=== PATIENT | female | born 1960 | race Caucasian/White ===

== ENCOUNTER 2018-11-07 07:18 | Inpatient (IN) ==
--- NOTE | 2018-11-06 21:50 | Discharge Summary ---
Orders not resulted at time of discharge: Pending orders 11/07/18 00:01 XR hip complete LT [XR] Routine H/H [Hemoglobin and Hematocrit] [HEME] Routine Date of Encounter: 11/09/18 Time of Encounter: 10:30 - Discharge Diagnosis (1) Status post total hip replacement, left Priority: Primary Status: Acute Comments: Opsite dressing, leave intact until first post-operative visit. If dressing becomes >50% saturated, contact office, remove dressing and place appropriate dressing in its place. Do not allow for dressing to get wet. Zipline/Jesús in place, plan to remove at post-operative day #14-16. Total Joint Precautions x 6 weeks Apply cold therapy wrap 3-6x/day for 20 minutes at a time. Encourage ambulation throughout the day Use Incentive spirometer 10x/hour. Elevate affected extremity above heart as tolerated. Brace: Wear hip abductor brace at night x 6 weeks. (2) Arthritis of left hip Priority: Primary Status: Acute (3) HTN (hypertension) Priority: Secondary Status: Chronic Qualifiers: Hypertension type: essential hypertension Qualified Code(s): I10 - Essential (primary) hypertension (4) HLD (hyperlipidemia) Priority: Secondary Status: Chronic Qualifiers: Hyperlipidemia type: mixed hyperlipidemia Qualified Code(s): E78.2 - Mixed hyperlipidemia (5) SVT (supraventricular tachycardia) Priority: Secondary Status: Chronic (6) Anxiety Priority: Secondary Status: Chronic (7) Depression Priority: Secondary Status: Chronic Qualifiers: Depression Type: unspecified Qualified Code(s): F32.9 - Major depressive disorder, single episode, unspecified (8) Obesity Priority: Secondary Status: Chronic Qualifiers: Obesity type: due to excess calories Obesity classification: adult class 2 (BMI 35 - 39.9) Serious obesity comorbidity presence: without serious comorbidity Body mass index: BMI 36.0-36.9 Qualified Code(s): E66.09 - Other obesity due to excess calories; Z68.36 - Body mass index (BMI) 36.0-36.9, adult - Hospital Course Hospital course: Ms. Mcneil is a 58 year old female, status post f . Patient had Right THR, uneventful postoperative course. Stable for discharge. Patient seen at bedside by this AM, without complaints. A&O x 3 Afebrile, vital signs stable. AM hypotension 11/09 - Cardizem held this AM. BP stable at D/C. Vital Signs Temp Pulse Resp BP Pulse Ox 11/09/18 09:41 98.3 F 92 16 123/59 96 11/09/18 07:01 97.4 F L 87 15 99/56 96 11/09/18 03:31 98.3 F 85 15 105/69 92 11/08/18 23:27 98.4 F 80 16 97/50 96 11/08/18 19:07 97.9 F 84 15 103/72 91 11/08/18 16:07 96/68 11/08/18 15:59 99.0 F 83 16 74/45 97 11/08/18 12:03 99.1 F 93 15 111/79 94 Intake and Output 11/08/18 11/09/18 11/09/18 23:59 07:59 15:59 Intake Total 300 / 300 360 / 360 Balance 300 / 300 360 / 360 Intake: Oral 300 / 300 360 / 360 Other: Meal Breakfast Percent of Meal Consumed 100% # Voids 1 1 Weight 98.2 kg Patient Weight 11/09/18 23:59 Weight 98.2 kg Labs reviewed. H/H - stable, asymptomatic Short CBC 11/09/18 Range/Units 07:29 Hgb 10.8 L (11.5-15.4) g/dL Hct 33.7 L (35.3-44.9) % Pain control: adequate Participating in PT. All questions and concerns addressed. Educated on use of incentive spirometer. Encouraged ambulation and proper hydration. Patient educated on post-operative restrictions and post-operative care. Assessment and plan: Continue with postoperative care Discharge plan: ECF , discharge today. - Time Spent with Patient Total time spent providing and/or coordinating discharge services: - Discharge Medications Home Medications: Aspirin Enteric Coated [Aspirin EC] 325 mg PO BID #20 tablet. 11/06/18 [Rx] Docusate [Colace] 100 mg PO BID 10 Days #20 capsule 11/06/18 [Rx] OxyCODONE Immed Rel [Roxicodone 5 MG] 5 mg PO Q6HR PRN 7 Days #28 tablet 11/06/18 [Rx] Duloxetine HCl [Cymbalta] 60 mg PO DAILY 11/07/18 [History] Linaclotide [Linzess] 145 mcg PO DAILY PRN 11/07/18 [History] Metoprolol Tartrate 50 mg PO BID 11/07/18 [History] Potassium Citrate [Urocit-K] 10 meq PO TID 11/07/18 [History] Pravastatin Sodium [Pravachol] 80 mg PO DAILY 11/07/18 [History] Pregabalin [Lyrica] 150 mg PO BID 11/07/18 [History] BuPROPion [Wellbutrin] 25 mg PO QAM 11/08/18 [History] BuPROPion [Wellbutrin] 50 mg PO HS 11/08/18 [History] Buspirone HCl [Buspar] 15 mg PO BID 11/08/18 [History] Celecoxib [Celebrex] 100 mg PO BID 11/08/18 [History] Diltiazem CD (24hr) [Cardizem CD] 240 mg PO DAILY 11/08/18 [History] Ascorbic Acid [Vitamin C] 500 mg PO BIDWM tablet 11/09/18 [Rx] Ferrous Sulfate 325 mg PO BIDWM tablet 11/09/18 [Rx] Multivit/Ca/Min/Fe/FA [Thera M Plus] 1 tab PO DAILY tablet 11/09/18 [Rx] Allergies/Adverse Reactions: Allergy/AdvReac Type Severity Reaction Status Date / Time bupropion [From Wellbutrin] Allergy See Verified 11/02/18 10:29 Comments prochlorperazine Allergy See Verified 11/02/18 10:29 [From Compazine] Comments promethazine [From Phenergan] Allergy See Verified 11/02/18 10:29 Comments Date of admission: 11/07/18 Primary care physician: Gogo Lopez Anticipated date of discharge: 11/09/18 - Patient Status Disposition: Transfer SNF Condition: Good Functional capacity at discharge: uses cane/walker Overall status at discharge: patient is progressing back to baseline - Discharge Instructions Follow Up With: Gogo Lopez [Primary Care Provider] -
--- NOTE | 2018-11-07 07:38 | Anesthesia Evaluation PreOp ---
Date of Encounter: 11/07/18 Time of Encounter: 07:37 - Past History Planned Operation: Left total hip Cardiac History: HTN, Hyperlipidemia, Other (hx SVT on diltiazem) Pulmonary History: Denies Any Significant HX PUBLICATION SPECIALIST History: Other (anxiety, depression) Other Medical History: Other (BMI 36) Anesthesia History: No Prior Anesthetic Complications, Past Anesthesia (laminect zeinab L5-S1, appy, hysterectomy, tonsil R total shoulder) : No Alcohol Use: none Drug use: none Medications and Allergies Aspirin Enteric Coated [Aspirin EC] 325 mg PO BID #20 tablet.dr 11/06/18 [Rx] Docusate [Colace] 100 mg PO BID 10 Days #20 capsule 11/06/18 [Rx] OxyCODONE Immed Rel [Roxicodone 5 MG] 5 mg PO Q6HR PRN 7 Days #28 tablet 11/06/18 [Rx] Allergy/AdvReac Type Severity Reaction Status Date / Time bupropion [From Wellbutrin] Allergy See Verified 11/02/18 10:29 Comments prochlorperazine Allergy See Verified 11/02/18 10:29 [From Compazine] Comments promethazine [From Phenergan] Allergy See Verified 11/02/18 10:29 Comments - Meds/Allergy Pre-op Review Medications Reviewed: Yes Allergies Reviewed: Yes Beta Blockers on Current Med List: Yes (metoprolol ) If Beta Blockers taken, Date/Time (Last Dose taken): 0700 Anesthesia Results - Labs Laboratory Tests 10/10/18 11/02/18 11/02/18 08:52 10:57 10:57 WBC 7.3 Hgb 13.9 Hct 42.8 Plt Count 336 PT 11.7 INR 1.0 APTT 31.5 Sodium 139 Potassium 4.3 Chloride 105 Carbon Dioxide 26 BUN 17 Creatinine 0.82 Est GFR (Non-Af Amer) > 60 - Imaging EKG: report reviewed Anesthesia Exam Vital Signs/O2 Sat/Glucose, Most Recent Temp Pulse Resp BP Pulse Ox 99.2 F 83 18 118/66 97 11/07/18 07:43 11/07/18 07:43 11/07/18 07:43 11/07/18 07:43 11/07/18 07:43 Weight: 97 kg NPO (# of Hours): > 8 hr - HEENT Pupil (Motor): Pupils equal Mallampati: III Teeth: Normal Oral Opening: Greater than 3 - PUBLICATION SPECIALIST LOC: Oriented PUBLICATION SPECIALIST Motor: Normal RUE, Normal LUE, Normal RLE, Normal LLE, Normal Face PUBLICATION SPECIALIST Sensory: Normal: RUE, LUE, RLE, LLE, Face - Cardiac Rhythm: Regular Murmur: None - Pulmonary Breath Sounds: bilateral Clear Respiratory Effort: Symmetrical Anesthesia Assess/Plan ASA Score: 3 Level of consciousness: Cooperative, Oriented Anesthetic Plan: Spinal Monitoring Plan: Standard Monitors Recovery Plan: PACU
[2018-11-07] MEDS ORDERED: Albuterol 2.5 MG/3 ML NEBULIZER IH ONE (07:39)
[2018-11-07] MEDS ORDERED: CeFAZolin Syr 2,000MG/20 ML 2,000 MG/20 ML SYRINGE IVPB ONE (07:39)
[2018-11-07] MEDS ORDERED: *HR* OxyCODONE ER (12 HR) 10 MG TABLET PO ONE (07:44)
[2018-11-07] MEDS ORDERED: Celecoxib 100 MG CAPSULE PO ONE (07:44)
[2018-11-07] MEDS ORDERED: Ringers Solution, Lactated 1,000 ML IVC SCH (07:45)
[2018-11-07] MEDS ORDERED: Famotidine 20 MG/2 ML VIAL IVP ONE (08:07)
[2018-11-07] MEDS ORDERED: *HR* HYDROmorphone (PF) 1 MG/ML SYRINGE IVP PRN (08:12)
[2018-11-07] MEDS ORDERED: *HR* OxyCODONE Immed Rel 5 MG TABLET PO PRN (08:12)
[2018-11-07] MEDS ORDERED: Ondansetron 4 MG/2 ML VIAL IVP ONE (08:12)
--- NOTE | 2018-11-07 08:16 | History & Physical Report ---
Date of Encounter: 11/07/18 Time of Encounter: 08:16 24 Hour HP Update - Instructions Instructions: If the History and Physical is less than 30 days old and was completed prior to A.M. admission and or procedure and has NOT been updated on calendar day of procedure please complete this update prior to performing procedure. - Update Patient reports changes in Medical Condition: No Changes in examination, assessment, or condition: No Changes in Medication: No Preop tests/diagnostics Reviewed: Yes Surgery Remains Indicated: Yes Consent for Planned Operative Procedure(s) Verified: Yes - Pre-Operative Checklist Preoperative Checklist Indicated: No Prophylactic Antibiotic Ordered: Yes Is VTE Prophylaxis Indicated?: Yes
[2018-11-07] MEDS ORDERED: Pregabalin 50 MG CAPSULE PO SCH (09:00)
[2018-11-07] MEDS ORDERED: Lidocaine -MPF 1% 5 ML AMPUL ONE (09:02)
[2018-11-07] MEDS ORDERED: Ethanol\\Acetic Acid\\Na Ace\\Ben 1,000 ML IRRIG.SOLN IR ONE (09:19)
--- NOTE | 2018-11-07 09:39 | Anesthesia Procedures ---
Date of Encounter: 11/07/18 Time of Encounter: 09:37 Procedures: Anesthesia - Epidural/Spinal Patient ID/Chart reviewed: Yes Patient examined: Yes OB Eval: Contractions: Non-stressed pattern Consent Obtained: Yes Supplemental Oxygen: Nasal Cannula Supplemental Oxygen Rate (L/min): 3 Sedation: Versed (mg): 2 Sedation: Fentanyl (mcg): 100 Site Prep: Aseptic Technique, Sterile prep and drape, Povidone-Iodine 1% Patient position: upright Local Anesthetic: Lidocaine 1% Amount of Local Anesthetic used: 3 Interspace Used: L4-L5 Loss of Resistance (ELVIA): No Blood: No CSF: Yes Paresthesia: No Spinal Needle Gauge: 25 (3.5" pencan needle) Spinal Dose: 2.5mL of 0.5% bupivicaine Procedure: successful on 1st attempt; patient tolerated procedure well; VSS Vitals + FHT's: see holding vital signs note
[2018-11-07] MEDS ORDERED: *HR* FentaNYL (PF) 100 MCG/2 ML VIAL ONE (10:31)
[2018-11-07] MEDS ORDERED: EPHEDrine 50 MG/ML VIAL ONE ×2 (10:31→10:49)
[2018-11-07] MEDS ORDERED: *HR* Midazolam HCl 2 MG/2 ML VIAL ONE (10:31)
[2018-11-07] MEDS ORDERED: Tranexamic Acid 1,000 MG/10 ML VIAL ONE (10:31)
[2018-11-07] MEDS ORDERED: *HR* Propofol 200 MG/20 ML VIAL IVP ONE (10:31)
[2018-11-07] MEDS ORDERED: Lidocaine -MPF 2% 2 ML VIAL ONE (10:31)
[2018-11-07] MEDS ORDERED: Propofol 500 MG/50 ML INFUS..BTL ONE ×2 (10:31→10:39)
[2018-11-07] MEDS ORDERED: *HR* PHENYLEPHRINE 1,000 MCG/10 ML SYRINGE IVP ONE (10:45)
--- NOTE | 2018-11-07 10:46 | Orthopedic Operative Note ---
Date of procedure: 11/07/18 Pre-op diagnosis: Left hip arthritis Post-op diagnosis: same Procedure: Procedure: Left Total Hip Replacment robotic-assisted Estimated blood loss: 200 cc Hardware: Metal and polyethylene replacement. [place] DM Cup: 50 cup Femoral size8 stem Head: 8 head with Lori Procedural Notes: Grade 4 arthritic changes femoral head acetabular socket, procedure performed with robotic assistance. Operative leg 1 mm shorter than nonoperative leg is measured by preoperative CT scan Operative procedure: The patient was brought to the operating room and placed on the operating room table. After general anesthesia was administered the patient was placed in the lateral decubitus position with the operative leg up. All pressure points were padded appropriately and the head was stabilized in the neutral position. The operative extremity was prepped and draped in the sterile surgical fashion patient received IV antibiotic prior to skin incision. 3 Steinmann pins were placed in the iliac crest 3 cm proximal to the anterior superior iliac spine this was for the robotic-assisted sensor. This was done through a small 2 cm incision. A standard posterior approach is made to the operative hip, the incision was made through the skin and subcutaneous tissue hemostasis was obtained with Bovie cautery. Using careful sharp dissection the fascia was identified and incised exposing the external rotators. The greater trochanter was marked, and length was measured at this time utilizing robotic assistance. The external rotators were released off the greater trochanter and tagged with #2 FiberWire suture. The capsule was T'd open and the hip was brought into internal rotation. Patient noted to have grade 4 arthritic changes femoral head. The femoral neck cut was made at the appropriate level roughly 15 mm proximal to the lesser trochanter aced on preoperative templating. An anterior capsulotomy was performed for the anterior retractor. Soft tissues removed from the acetabulum. Patient noted to have grade 4 arthritic changes acetabulum. The acetabulum reference point was confirmed. The acetabulum was then mapped with robotic assistance. Based on the preoperative plan the acetabulum was reamed in one step with a 49 reamer. The 50 acetabulum was impacted with robotic assistance and 36 degrees of abduction and 22 degrees of anteversion. The hip was brought back in to internal rotation and prepared with the hot box operator followed by the canal finder followed by the reaming process to a size 7/8 broaching process in 20 degrees anteversion. It was broached up to the appropriate size 8 Trial reduction revealed leg lengths close to normal. The femoral implant was impacted in place in 20 degrees of anteversion. Trial reduction found the hip to be stable with 8 head and Lori. The trials were removed and the real implants were impacted in place. The hip was reduced, patient had robotic confirmed leg length of 10 mm longer than the contralateral side. The hip had excellent stability with forward flexion to 90 degrees adduction of 30 degrees and internal rotation of 60 degrees. The hip had no shuck. The hip sat with an antibacterial solution. It was irrigated out with 2 L of pulse irrigation. The Steinmann pins were removed. The hip was closed by the PA. The deep tissue was irrigated and closed deep with #1 PDS suture superficially with 0 PDS suture and skin was closed with Dermabond and zip tie. The patient was placed in a sterile dressing and abduction pillow. The patient was extubated and transferred to the recovery room in stable condition. Anesthesia: spinal Surgeon: Emmanuel Steel Was there an technical services assistant present: Yes E Commerce Specialist: Nica Ricks Estimated blood loss (cc): 200 Condition: stable Disposition: PACU
--- NOTE | 2018-11-07 11:41 | Anesthesia Evaluation Post Op ---
Date of Encounter: 11/07/18 Time of Encounter: 11:40 - Vital Signs Vital Signs: Vital Signs/O2 Sat/Glucose, Most Recent Temp Pulse Resp BP Pulse Ox 97.4 F L 78 14 97/56 98 11/07/18 11:15 11/07/18 11:35 11/07/18 11:35 11/07/18 11:35 11/07/18 11:35 - Lungs Lungs: Clear Ascult./Percussion - Airway Airway: Non-obstructed - Cardiovascular Regular Rate - Mental Status Mental Status: Alert & Oriented, Answers Appropriately - Pain Pain Scale: 0 - Nausea Vomiting Nausea Vomiting: Not Present - Hydration Hydration: Tolerates oral liquids - Discharge PostOp Status: Transfer Patient to floor
[2018-11-07 11:49] LABS: Hemoglobin 11.4 g/dL (11.5-15.4)
[2018-11-07] MEDS ORDERED: MOM Conc 10 ML UD.LIQ PO PRN (11:59)
[2018-11-07] MEDS ORDERED: Naloxone 0.4 MG/ML INJ IVP PRN (11:59)
[2018-11-07] MEDS ORDERED: Ondansetron 4 MG/2 ML VIAL IVP PRN (11:59)
[2018-11-07] MEDS ORDERED: *HR* Promethazine 25 MG/ML VIAL IVP PRN (11:59)
[2018-11-07] MEDS ORDERED: (Linaclotide [Linzess] 145 MCG) PO PRN (11:59)
[2018-11-07] MEDS ORDERED: Temazepam 15 MG CAPSULE PO PRN (11:59)
[2018-11-07] MEDS ORDERED: Sennosides 8.6 MG TABLET PO PRN (11:59)
[2018-11-07] MEDS ORDERED: BUPROPION HCL 75 MG PO SCH (11:59)
[2018-11-07] MEDS: Ringers Solution, Lactated 1,000 ML IVC SCH (12:59)
[2018-11-07] MEDS: Diltiazem CD (24hr) 240 MG CAPSULE PO SCH (13:05)
[2018-11-07] MEDS: Pregabalin 75 MG CAPSULE PO SCH ×2 (13:06→21:43)
[2018-11-07] MEDS: Multivit/Ca/Min/Fe/FA 1 TAB TABLET PO SCH (13:06)
--- NOTE | 2018-11-07 14:54 | Physician Discharge Referral ---
ExtendedCare Referral Info Transfer To: [facility] Provider in Charge: Provider in Charge after Transfer: PCP Institutional Level of Care: Skilled - Diagnosis (1) Status post total hip replacement, left Priority: Primary Status: Acute (2) Arthritis of left hip Priority: Primary Status: Acute (3) HTN (hypertension) Status: Chronic (4) HLD (hyperlipidemia) Status: Chronic (5) SVT (supraventricular tachycardia) Status: Chronic (6) Anxiety Status: Acute (7) Depression Status: Chronic (8) Obesity Status: Chronic - Transfer Medications Home Medications: Aspirin Enteric Coated [Aspirin EC] 325 mg PO BID #20 tablet. 11/06/18 [Rx] Docusate [Colace] 100 mg PO BID 10 Days #20 capsule 11/06/18 [Rx] OxyCODONE Immed Rel [Roxicodone 5 MG] 5 mg PO Q6HR PRN 7 Days #28 tablet 11/06/18 [Rx] Duloxetine HCl [Cymbalta] 60 mg PO DAILY 11/07/18 [History] Linaclotide [Linzess] 145 mcg PO DAILY PRN 11/07/18 [History] Metoprolol Tartrate 50 mg PO BID 11/07/18 [History] Potassium Citrate [Urocit-K] 10 meq PO TID 11/07/18 [History] Pravastatin Sodium [Pravachol] 80 mg PO DAILY 11/07/18 [History] Pregabalin [Lyrica] 150 mg PO BID 11/07/18 [History] BuPROPion [Wellbutrin] 25 mg PO QAM 11/08/18 [History] BuPROPion [Wellbutrin] 50 mg PO HS 11/08/18 [History] Buspirone HCl [Buspar] 15 mg PO BID 11/08/18 [History] Celecoxib [Celebrex] 100 mg PO BID 11/08/18 [History] Diltiazem CD (24hr) [Cardizem CD] 240 mg PO DAILY 11/08/18 [History] Ascorbic Acid [Vitamin C] 500 mg PO BIDWM tablet 11/09/18 [Rx] Ferrous Sulfate 325 mg PO BIDWM tablet 11/09/18 [Rx] Multivit/Ca/Min/Fe/FA [Thera M Plus] 1 tab PO DAILY tablet 11/09/18 [Rx] Allergies/Adverse Reactions: Allergy/AdvReac Type Severity Reaction Status Date / Time bupropion [From Wellbutrin] Allergy See Verified 11/02/18 10:29 Comments prochlorperazine Allergy See Verified 11/02/18 10:29 [From Compazine] Comments promethazine [From Phenergan] Allergy See Verified 11/02/18 10:29 Comments - Respiratory Orders None Smoking Cessation: Smoking cessation has been advised. For more information, call the [place] Tobacco Quit Line at 0-198-QVWK-NOW. - Ancillary Orders May use pressure relief devices daily prn, May go on TAYLOR w/family/respon alliance party w/meds at nurse discretion PRN, May consult with Dentist, Triple Drum Operator, Employee Relations Director PRN - Advance Directives Code Status: Full Code - Mobility Orders Chair, Ambulate - Rehabiliation Orders Rehab Potential: Good Rehab Orders: ROM Exercises, Evaluation for Physical Therapy, Evaluation for Occupational Therapy Other: Opsite dressing, leave intact until first post-operative visit. If dressing becomes >50% saturated, contact office, remove dressing and place appropriate dressing in its place. Do not allow for dressing to get wet. Zipline/Jesús in place, plan to remove at post-operative day #14-16. Total Joint Precautions x 6 weeks Apply cold therapy wrap 3-6x/day for 20 minutes at a time. Encourage ambulation throughout the day Use Incentive spirometer 10x/hour. Elevate affected extremity above heart as tolerated. Brace: Wear hip abductor brace at night x 6 weeks. - Treatments Skin tear care topically daily PRN per policy, May check for fecal impaction rectally daily PRN, Fleet enema rectally every other day PRN cleansing purposes - Diet Orders Regular CERTIFICATION: I certify that the transfer of the above named patient to an Extended Care Facility is necessary for the continuing treatment of the diagnosis listed. The above information is true and accurate reflection of patient's current condition. Confidential - Redisclosure prohibited without a patient's written consent.
[2018-11-07] MEDS ORDERED: Potassium Citrate 10 MEQ TABLET.ER PO SCH (15:00)
[2018-11-07] MEDS: traMADol 50 MG TABLET PO PRN (15:25)
[2018-11-07] MEDS: Ascorbic Acid 500 MG TABLET PO SCH (16:19)
[2018-11-07] MEDS: *HR* OxyCODONE/APAP 5/325 TABLET PO PRN (16:19)
[2018-11-07] MEDS ORDERED: *HR* Enoxaparin 30 MG/0.3 ML SYRINGE SQ SCH (18:00)
[2018-11-07] MEDS: *HR* Enoxaparin 30 MG/0.3 ML SYRINGE SQ SCH (19:18)
[2018-11-07] MEDS: Potassium Citrate 10 MEQ TABLET.ER PO SCH (21:42)
[2018-11-08] MEDS: *HR* OxyCODONE/APAP 5/325 TABLET PO PRN (00:27)
[2018-11-08] MEDS: *HR* OxyCODONE Immed Rel 5 MG TABLET PO PRN ×2 (01:23→05:30)
[2018-11-08] MEDS: Ringers Solution, Lactated 1,000 ML IVC SCH (05:19)
[2018-11-08] MEDS: *HR* Enoxaparin 30 MG/0.3 ML SYRINGE SQ SCH ×2 (05:19→17:53)
[2018-11-08 06:26] LABS: Hematocrit 35.5 % (35.3-44.9); Hemoglobin 11.3 g/dL (11.5-15.4)
[2018-11-08 06:51] LABS: BUN/Creatinine Ratio 17 (6-26); Blood Urea Nitrogen 14 mg/dL (6-20); Calcium 8.9 mg/dL (8.6-10.3); Carbon Dioxide 22 mEq/L (23-29); Chloride 106 mEq/L (98-107); Glucose 115 mg/dL (70-105); Osmolality,Calculated 285 (280-300); Potassium 4.1 mEq/L (3.5-5.1); Sodium 137 mEq/L (136-145); eGFR For Non-African Americans > 60 (> 60)
--- NOTE | 2018-11-08 08:06 | Orthopedics Progress Note ---
Date of Encounter: 11/08/18 Time of Encounter: 08:06 Subjective Interval history: Patient was seen this morning doing well without complaints. Afebrile vital signs stable. Operative extremity: Neurovascularly intact Dressing clean dry and intact Calves nontender Assessment and plan: Continue with postoperative care Hematocrit 35 Objective Vital signs: Vital Signs Temp Pulse Resp BP Pulse Ox 11/08/18 06:59 98.5 F 92 15 104/57 95 11/08/18 04:14 99.0 F 94 17 114/73 94 11/08/18 03:31 98.0 F 67 18 107/53 96 11/08/18 01:20 123/86 11/07/18 23:16 98.6 F 87 17 116/64 97 11/07/18 19:17 98.3 F 79 16 126/80 99 11/07/18 16:16 94 16 128/87 93 11/07/18 15:11 89 16 93/52 92 11/07/18 14:42 98.3 F 82 16 106/64 97 11/07/18 13:35 97.6 F 83 15 90/56 96 11/07/18 13:00 97.7 F 79 16 106/70 94 11/07/18 12:03 97.5 F L 79 15 81/46 92 11/07/18 11:45 97.5 F L 80 16 95/51 100 11/07/18 11:35 78 14 97/56 98 11/07/18 11:25 75 16 89/42 99 11/07/18 11:15 97.4 F L 87 18 104/44 99 11/07/18 09:35 77 96/53 97 11/07/18 09:17 75 115/50 100 Intake and Output 11/07/18 11/08/18 11/08/18 23:59 07:59 15:59 Intake Total 100 / 100 1000 / 1000 Balance 100 / 100 1000 / 1000 Intake: IV Fluids 100 / 100 1000 / 1000 Lactated Ringers 1,000 ML @ 75 1000 / 1000 mls/hr IVC .[id number] [facility] Rx#: [id number] Ancef 2,000 MG In 0.9 % Sodium 100 / 100 Chloride 100 ML @ 200 mls/hr IVPB Q8HR [facility] Rx#:[id number] Other: # Voids 1 1 - Labs CBC & BMP: 11/08/18 05:47 11/08/18 05:47 Labs: Abnormal lab results Hgb 11.3 g/dL (11.5-15.4) L 11/08/18 05:47 Carbon Dioxide 22 mEq/L (23-29) L 11/08/18 05:47 Glucose 115 mg/dL (70-105) H 11/08/18 05:47 Consult Discharge Plan - Plan Referrals: Gogo Lopez [Primary Care Provider] -
[2018-11-08] MEDS: Ascorbic Acid 500 MG TABLET PO SCH ×2 (08:43→17:53)
[2018-11-08] MEDS: Pregabalin 75 MG CAPSULE PO SCH ×2 (08:43→20:19)
[2018-11-08] MEDS: Potassium Citrate 10 MEQ TABLET.ER PO SCH ×2 (08:43→20:19)
[2018-11-08] MEDS: Multivit/Ca/Min/Fe/FA 1 TAB TABLET PO SCH (08:44)
[2018-11-08] MEDS: Diltiazem CD (24hr) 240 MG CAPSULE PO SCH (09:44)
[2018-11-08] MEDS: traMADol 50 MG TABLET PO PRN (10:45)
[2018-11-09] MEDS: *HR* OxyCODONE/APAP 5/325 TABLET PO PRN (03:51)
[2018-11-09] MEDS: *HR* Enoxaparin 30 MG/0.3 ML SYRINGE SQ SCH (06:35)
[2018-11-09 08:18] LABS: Hematocrit 33.7 % (35.3-44.9); Hemoglobin 10.8 g/dL (11.5-15.4)
--- NOTE | 2018-11-09 08:23 | Orthopedics Progress Note ---
Date of Encounter: 11/09/18 Time of Encounter: 08:23 Subjective Interval history: Patient was seen this morning doing well without complaints. Afebrile vital signs stable. Operative extremity: Neurovascularly intact Dressing clean dry and intact Calves nontender Assessment and plan: Continue with postoperative care Hematocrit 33 discharged tomorrow Objective Vital signs: Vital Signs Temp Pulse Resp BP Pulse Ox 11/09/18 07:01 97.4 F L 87 15 99/56 96 11/09/18 03:31 98.3 F 85 15 105/69 92 11/08/18 23:27 98.4 F 80 16 97/50 96 11/08/18 19:07 97.9 F 84 15 103/72 91 11/08/18 16:07 96/68 11/08/18 15:59 99.0 F 83 16 74/45 97 11/08/18 12:03 99.1 F 93 15 111/79 94 Intake and Output 11/08/18 11/09/18 11/09/18 23:59 07:59 15:59 Intake Total 300 / 300 Balance 300 / 300 Intake: Oral 300 / 300 Other: # Voids 1 1 Weight 98.2 kg Patient Weight 11/09/18 23:59 Weight 98.2 kg - Labs CBC & BMP: 11/09/18 07:29 11/08/18 05:47 Labs: Abnormal lab results Hgb 10.8 g/dL (11.5-15.4) L 11/09/18 07:29 Hct 33.7 % (35.3-44.9) L 11/09/18 07:29 Carbon Dioxide 22 mEq/L (23-29) L 11/08/18 05:47 Glucose 115 mg/dL (70-105) H 11/08/18 05:47 Consult Discharge Plan - Plan Referrals: Gogo Lopez [Primary Care Provider] -
[2018-11-09] MEDS: Diltiazem CD (24hr) 240 MG CAPSULE PO SCH (08:42)
[2018-11-09] MEDS: Pregabalin 75 MG CAPSULE PO SCH (08:44)
[2018-11-09] MEDS: Ascorbic Acid 500 MG TABLET PO SCH (08:44)
[2018-11-09] MEDS: Multivit/Ca/Min/Fe/FA 1 TAB TABLET PO SCH (08:44)
[2018-11-09] MEDS: Potassium Citrate 10 MEQ TABLET.ER PO SCH (08:46)
[2018-11-09 09:46] VITALS: BP 123/59
--- NOTE | 2018-11-09 10:59 | Event Note ---
Date of Encounter: 11/08/18 Time of Encounter: 10:57 Patient seen and evaluated - Doing well PCR POD#1 - Right THR Plan for ECF. Stable.
[2018-11-09 11:00] LABS: BUN/Creatinine Ratio 13 (6-26); Blood Urea Nitrogen 12 mg/dL (6-20); Calcium 8.9 mg/dL (8.6-10.3); Carbon Dioxide 25 mEq/L (23-29); Chloride 107 mEq/L (98-107); Glucose 87 mg/dL (70-105); Osmolality,Calculated 289 (280-300); Potassium 3.5 mEq/L (3.5-5.1); Sodium 140 mEq/L (136-145); eGFR For Non-African Americans > 60 (> 60)
[2018-11-09] MEDS: *HR* OxyCODONE Immed Rel 5 MG TABLET PO PRN (11:13)
== END 2018-11-09 12:27 | DRG 470 ==
LOC: SAMDAY 07:18 → 3NENU 11:48
PROVIDERS: ADMIT Orthopaedic Surgery; ATTEND Orthopaedic Surgery